=== PATIENT | female | born 1995 | race Caucasian/White ===

== ENCOUNTER 2016-12-21 20:11 | Emergency (ER) | payer BC ==
[~2016-12-21] VITALS: Ht 162.6 cm; Wt 61.1 kg
[2016-12-21 20:14] VITALS: TEMP 36.6; Ht 162.6 cm; Wt 61.1 kg
[2016-12-21] MEDS ORDERED: BCPILLS PO (21:09)
[2016-12-21] MEDS ORDERED: ESCI10TA17 PO (21:09)
[2016-12-21 21:49] LABS: BASO % 0.8 %; BASO ABS # 0.07 K/uL (0-0.2); COMPLETE YES; EOS % 0.3 %; HEMATOCRIT 41.1 % (37-47); IG% 0.2 %; LYMPH % 23.1 %; LYMPH ABS # 2.03 K/uL (1.2-3.4); MEAN CORPUSCULAR HEMOGLOBIN 31.9 pg (25-34); MEAN CORPUSCULAR HGB CONC 34.3 g/dl (32-36); MEAN PLATELET VOLUME 9.8 fL (7.4-10.4); MONO % 3.8 %; NEUT % 71.8 %; PLATELET COUNT 317 K/uL (130-400); RED BLOOD COUNT 4.42 M/uL (4.2-5.4)
[2016-12-21 22:18] LABS: ACETAMINOPHEN < 2 ug/ml (10-30)
[2016-12-21 22:19] LABS: CALCIUM 8.4 mg/dl (8.5-10.1); CREATININE 0.72 mg/dl (0.60-1.20); POTASSIUM 3.7 mmol/L (3.5-5.1)
[2016-12-21 22:27] LABS: ALB/GLOB RATIO 1.2 (0.9-2); THYROID STIMULATING HORMONE 0.7 uIu/ml (0.300-4.500)
[2016-12-21 22:29] LABS: BENZODIAZEPINE, URINE NEG (NEG); COCAINE,URINE NEG (NEG); PHENCYCLIDINE, URINE NEG (NEG)
--- NOTE | 2016-12-22 00:17 | EMERGENCY ROOM VISIT NOTE ---
History Report prepared by Christine: Sheila Patel Under the Supervision of: Dr. Josue Alvarez D.O. First contact with patient: 20:29 Chief Complaint: MENTAL HEALTH EVALUATION Stated Complaint: SUICIDAL THOUGHTS History of Present Illness The patient is a 21 year old female who presents to the Emergency Room with complaints of sudden thoughts of self-harm that occurred earlier today. The patient states that she went through an unexpected break-up earlier today and that caused her to want to cut herself. The patient was dating her ex-boyfriend for 5 months and her friends state that it was pretty serious. The patient heard a rumor that he was cheating on her and she asked him about it. He proceeded to say that he wanted to break-up because he couldn't see himself marrying her. He admitted to cheating on her during this past week. This is her first serious break-up. The patient tried to calm herself down by talking to friends and family, but she could not so she felt like she should come into the ED to avoid harming herself. The patient states that she wanted to cut wrists with a knife because of the incident. She denies suicidal ideation and states that she just wanted to cut herself. She states that she wants to cut herself now because she feels bad that her friends are wasting their Friday night here and that her mom is driving all the way here. The patient adds that she feels like she is overreacting and feels like freak because she can't control it. She has a history of cutting. She first cut herself when she was 16-18. She stopped for a while after that and her most recent episode of cutting was 1.5 years ago after a "bad night out." She states that she cut her forearms with a sharp rice after that. She states that she was drinking alcohol earlier today. She started drinking around 1400 and stopped around 1700. The patient states that she has a history of anxiety and started Lexapro around . She states that it has not been helping much. The patient has never been admitted to a mental health facility. The patient saw a psychiatrist 3 years ago and she is in the process of setting up an appointment with a local one. The patient is an Education major at [employer] and plans to start looking for a job in February. Source of History: patient Onset: earlier today Quality: other (thoughts of self-harm) Timing: other (sudden) Note: no suicidal ideation Review of Systems See HPI for pertinent positives & negatives. A total of 10 systems reviewed and were otherwise negative. Past Medical & Surgical Medical Problems: (1) Anxiety (2) History of self-harm Family History No pertinent family history Social History Smoking Status: Never Smoker Housing Status: lives with roommate Occupation Status: [employer] student Current/Historical Medications Scheduled Control Pills ( Control Pills), 1 TAB PO DAILY Escitalopram (Lexapro), 10 MG PO DAILY Allergies Coded Allergies: No Known Allergies (Unverified , 12/21/16) Physical Exam Vital Signs Date Time Temp Pulse Resp B/P Pulse Ox O2 Delivery O2 Flow Rate FiO2 12/22/16 00:32 78 18 110/60 99 12/21/16 22:49 81 18 112/59 99 Room Air 12/21/16 20:14 36.6 79 18 128/81 97 Room Air Physical Exam CONSTITUTIONAL/VITAL SIGNS: Reviewed / noted above. GENERAL: Non-toxic in appearance. INTEGUMENTARY: Warm, dry, and [place]. HEAD: Normocephalic. EYES: without scleral icterus or trauma. ENT/OROPHARYNX: clear and moist. LYMPHADENOPATHY/NECK: Is supple without lymphadenopathy or meningismus. RESPIRATORY: Lungs clear and equal. CARDIOVASCULAR: Regular rate and rhythm. GI/ABDOMEN: Soft and nontender. No organomegaly or pulsatile mass. No rebound or guarding. Normal bowel sounds. EXTREMITIES: Warm and well perfused. BACK: No CVA tenderness. NEUROLOGICAL: Intact without focal deficits. PSYCHIATRIC: Flat affect. Depressed. Admits to having feelings of want to cut self. MUSCULOSKELETAL: Normally developed with good muscle tone. Medical Decision & Procedures Laboratory Results 12/21/16 21:35 Red Blood Count 4.42, Mean Corpuscular Volume 93.0, Mean Corpuscular Hemoglobin 31.9, Mean Corpuscular Hemoglobin Concent 34.3, Mean Platelet Volume 9.8, Neutrophils (%) (Auto) 71.8, Lymphocytes (%) (Auto) 23.1, Monocytes (%) (Auto) 3.8, Eosinophils (%) (Auto) 0.3, Basophils (%) (Auto) 0.8, Neutrophils # (Auto) 6.32, Lymphocytes # (Auto) 2.03, Monocytes # (Auto) 0.33, Eosinophils # (Auto) 0.03, Basophils # (Auto) 0.07 12/21/16 21:35 Test 12/21/16 00:00 12/21/16 21:35 Urine Opiates Screen NEG (NEG) Urine Methadone, Qualitative NEG (NEG) Urine Barbiturates NEG (NEG) Urine Phencyclidine (PCP) Level NEG (NEG) Ur Amphetamine/Methamphetamine NEG (NEG) MDMA (Ecstasy) Screen NEG (NEG) Urine Benzodiazepines Screen NEG (NEG) Urine Cocaine Metabolite NEG (NEG) Urine Marijuana (THC) NEG (NEG) White Blood Count 8.80 K/uL (4.8-10.8) Red Blood Count 4.42 M/uL (4.2-5.4) Hemoglobin 14.1 g/dL (12.0-16.0) Hematocrit 41.1 % (37-47) Mean Corpuscular Volume 93.0 fL (80-100) Mean Corpuscular Hemoglobin 31.9 pg (25-34) Mean Corpuscular Hemoglobin Concent 34.3 g/dl (32-36) Platelet Count 317 K/uL (130-400) Mean Platelet Volume 9.8 fL (7.4-10.4) Neutrophils (%) (Auto) 71.8 % Lymphocytes (%) (Auto) 23.1 % Monocytes (%) (Auto) 3.8 % Eosinophils (%) (Auto) 0.3 % Basophils (%) (Auto) 0.8 % Neutrophils # (Auto) 6.32 K/uL (1.4-6.5) Lymphocytes # (Auto) 2.03 K/uL (1.2-3.4) Monocytes # (Auto) 0.33 K/uL (0.11-0.59) Eosinophils # (Auto) 0.03 K/uL (0-0.5) Basophils # (Auto) 0.07 K/uL (0-0.2) RDW Standard Deviation 44.2 fL (36.4-46.3) RDW Coefficient of Variation 13.0 % (11.5-14.5) Immature Granulocyte % (Auto) 0.2 % Immature Granulocyte # (Auto) 0.02 K/uL (0.00-0.02) Anion Gap 12.0 mmol/L (3-11) Est Creatinine Clear Calc Drug Dose 105.9 ml/min Estimated GFR () 137.8 Estimated GFR (Non- 118.9 BUN/Creatinine Ratio 11.0 (10-20) Calcium Level 8.4 mg/dl (8.5-10.1) Total Bilirubin 0.2 mg/dl (0.2-1) Aspartate Amino Transf (AST/SGOT) 19 U/L (15-37) Alanine Aminotransferase (ALT/SGPT) 22 U/L (12-78) Alkaline Phosphatase 61 U/L (45-117) Total Protein 7.9 gm/dl (6.4-8.2) Albumin 4.3 gm/dl (3.4-5.0) Globulin 3.6 gm/dl (2.5-4.0) Albumin/Globulin Ratio 1.2 (0.9-2) Thyroid Stimulating Hormone (TSH) 0.700 uIu/ml (0.300-4.500) Salicylates Level < 1.7 mg/dl (2.8-20) Acetaminophen Level < 2 ug/ml (10-30) Ethyl Alcohol mg/dL 183.0 mg/dl (0-3) Laboratory results as stated above per my review. ED Course 2044: Previous medical records were reviewed. The patient was evaluated in room C6. A complete history and physical examination was performed. 2310: The patient declined a mental health evaluation. Her parents are coming to pick her up. 0012: On reevaluation, the patient is doing well. I discussed the results and findings with the patient and her parents. They verbalized agreement of the treatment plan. The patient was discharged home. Medical Decision Differential includes toxic ingestions, self-mutilation, suicidal ideation, suicide attempt, depression. Physical 21-year-old female who presents to the ED with a chief complaint of depression and feeling as though she wants to cut herself. The patient states that her boyfriend broke up with her today. She has been drinking alcohol today as well. The patient states that she started drinking around 2 PM and stop drinking around 5 PM. She reports having cut herself in the past. She has seen a psychiatrist when she was younger but has not seen one recently. She is currently on Lexapro from her PCP. She is a [employer] student. The patient has no other complaints at this time. Blood work reveals a normal CBC and chemistry panel. The patient appears to be intoxicated with an alcohol level of 184. Tox screen was negative. Chemistry panel was unremarkable. The patient is here with her friends. The patient states that she does not want to stay for a mental health evaluation as it would be at least 4 hours from the time of the blood draw. The patient's parents are here with the patient. They' re going to stay with her and get her and with a mental health professional or [facility] on campus. She is felt to be stable for discharge and outpatient follow- up. Impression Primary Impression: Depression Scribe Attestation The scribe's documentation has been prepared under my direction and personally reviewed by me in its entirety. I confirm that the note above accurately reflects all work, treatment, procedures, and medical decision making performed by me. Departure Information Dispostion Home / Self-Care Forms HOME CARE DOCUMENTATION FORM, IMPORTANT VISIT INFORMATION Patient Instructions My [facility] Additional Instructions Follow-up with [facility] on campus. Follow-up with your doctor for further care and evaluation in 1-2 days. Return to the emergency department for worsening or new symptoms or any concerns. You have been examined and treated today on an emergency basis only. This is not a substitute for, or an effort to provide, complete comprehensive medical care. It is impossible to recognize and treat all injuries or illnesses in a single emergency department visit. It is therefore important that you follow up closely with your doctor. Call as soon as possible for an appointment.
[2016-12-22 00:32] VITALS: BP 110/60; PULSE 78; O2SAT 99
== END 2016-12-22 00:38 | disposition home or self-care (01) ==
LOC: C.EDB 20:13 → EEVIPCON 20:13 → C.EDC 12-22 00:38
DX: F32.9 Major depressive disorder, single episode, unspecified (principal); R45.851 Suicidal ideations; F41.9 Anxiety disorder, unspecified; Z79.899 Other long term (current) drug therapy